=== PATIENT | female | born 1930 | race African-American/Black ===

== ENCOUNTER 2016-12-14 15:19 | Inpatient (IN) | payer MEDICARE, BC ==
[~2016-12-14] VITALS: Ht 165.1 cm; Wt 63.5 kg
[2016-12-14 17:30] LABS: BASOPHILS % 0.7 % (0.0-2.0); EOSINOPHILS % 4.2 % (0.0-5.0); HEMATOCRIT. 33.3 % (36.0-48.0); LYMPHOCYTES % 22.9 % (20.0-50.0); MEAN CORPUSCULAR HEMOGLOBIN 27.8 pg (28.0-32.0); MEAN CORPUSCULAR VOLUME 84.1 fL (81.0-99.0); MEAN PLATELET VOLUME 11.2 fl (7.4-10.4); MONOCYTES % 13.2 % (2.0-8.0); PLATELET 94 x1000/uL (130-400); RED BLOOD CELL COUNT 3.96 mill/uL (4.2-5.4); RED CELL DISTRIBUTION WIDTH 13.3 % (11.6-14.6)
[2016-12-14 17:33] LABS: CHLORIDE 105 mEq/L (98-107)
[2016-12-14 17:36] LABS: CARBON DIOXIDE 29 mEq/L (21-32)
[2016-12-14 17:40] LABS: D-DIMER 1.09 mg/L FEU (<0.50); INR 2.6; PARTIAL THROMBOPLASTIN TIME 29.9 sec (23.4-31.0); PROTHROMBIN TIME 26.8 sec (9.4-11.6)
[2016-12-14 17:43] LABS: TROPONIN I 0.17 ng/mL (0.00-0.04)
[2016-12-14] MEDS ORDERED: HYDRALAZINE 20MG/ML VIAL IV ONE (19:30)
[2016-12-14] MEDS ORDERED: MORPHINE SULFATE 4 MG/ML CPJ (NOT FOR IM USE) IV ONE (21:15)
[2016-12-14] MEDS ORDERED: ONDANSETRON HCL 4MG/2ML VIAL IV ONE (21:15)
[2016-12-15] VITALS: BP 166/62
[2016-12-15] MEDS ORDERED: ACETAMINOPHEN 325MG TABLET PO PRN (03:00)
[2016-12-15] MEDS ORDERED: ONDANSETRON HCL 4MG/2ML VIAL IV PRN (03:00)
[2016-12-15] MEDS ORDERED: MAGNESIUM HYDROXIDE 400MG/5ML 30ML UDC PO PRN (03:00)
[2016-12-15] MEDS ORDERED: LOSA25TA12 PO (03:35)
[2016-12-15] MEDS ORDERED: GABA-531 PO (03:35)
[2016-12-15] MEDS ORDERED: ATEN50TA PO (03:35)
[2016-12-15] MEDS ORDERED: WARF7.5T22 PO (03:35)
[2016-12-15] MEDS ORDERED: PRAV80TA21 PO (03:35)
[2016-12-15] MEDS ORDERED: KDUR20 PO (03:35)
[2016-12-15] MEDS ORDERED: FURO-152 PO (03:35)
[2016-12-15 04:00] VITALS: BP 175/65
[2016-12-15 08:00] VITALS: BP 138/51
[2016-12-15] MEDS: POTASSIUM CHLORIDE 20MEQ TABLET SR PO SCH (09:01)
[2016-12-15] MEDS: LOSARTAN POTASSIUM 25 MG TABLET PO SCH ×2 (09:01→21:26)
[2016-12-15] MEDS: FUROSEMIDE 20MG TABLET PO SCH (09:01)
[2016-12-15 09:22] LABS: BASOPHILS % 0.7 % (0.0-2.0); EOSINOPHILS % 4.6 % (0.0-5.0); HEMATOCRIT. 32.8 % (36.0-48.0); HEMOGLOBIN. 10.8 g/dL (12.0-16.0); LYMPHOCYTES % 23.5 % (20.0-50.0); MEAN CORPUSCULAR HEMOGLOBIN 27.7 pg (28.0-32.0); MEAN CORPUSCULAR VOLUME 83.8 fL (81.0-99.0); MEAN PLATELET VOLUME 10.8 fl (7.4-10.4); MONOCYTES % 10.5 % (2.0-8.0); NEUTROPHILS % 60.7 % (40.0-76.0); PLATELET 91 x1000/uL (130-400); RED BLOOD CELL COUNT 3.91 mill/uL (4.2-5.4); RED CELL DISTRIBUTION WIDTH 13.3 % (11.6-14.6)
[2016-12-15 09:49] LABS: CARBON DIOXIDE 30 mEq/L (21-32); CHLORIDE 107 mEq/L (98-107); CREATINE KINASE 214 IU/L (26-192); CREATINE KINASE MB FRACTION 3.5 ng/mL (0.5-3.6); HDL CHOLESTEROL 72 mg/dL (40-59); LDL CHOLESTEROL 78 mg/dL (5-100); PHOSPHORUS 3.7 mg/dL (2.5-4.9); T4 FREE 1.21 ng/dL (0.76-1.46); TOTAL IRON BINDING CAPACITY 209 ug/dL (250-450); TROPONIN I 0.19 ng/mL (0.00-0.04)
[2016-12-15 12:00] VITALS: BP 140/44
[2016-12-15 16:00] VITALS: BP 141/78
[2016-12-15 20:05] VITALS: BP 141/44
[2016-12-15] MEDS ORDERED: MEDICATION NOT ON FORMULARY EA (Pravastatin Sodium 80 MG) PO SCH (21:00)
[2016-12-15] MEDS: GABAPENTIN 300MG CAPSULE PO SCH (21:26)
[2016-12-15] MEDS: ATORVASTATIN CALCIUM 20MG TABLET PO SCH (21:26)
[2016-12-15 22:12] LABS: CREATINE KINASE MB FRACTION 2.2 ng/mL (0.5-3.6); TROPONIN I 0.17 ng/mL (0.00-0.04)
[2016-12-16 00:05] VITALS: BP 175/57
[2016-12-16 04:02] VITALS: BP 160/70
[2016-12-16 06:38] LABS: INR 1.7; PROTHROMBIN TIME 17.5 sec (9.4-11.6)
[2016-12-16 08:00] VITALS: BP 175/58
[2016-12-16] MEDS: POTASSIUM CHLORIDE 20MEQ TABLET SR PO SCH (09:11)
[2016-12-16] MEDS: FUROSEMIDE 20MG TABLET PO SCH (09:11)
[2016-12-16] MEDS: LOSARTAN POTASSIUM 25 MG TABLET PO SCH ×2 (09:11→21:41)
[2016-12-16] MEDS ORDERED: TRAMADOL 50MG TABLET PO PRN (11:15)
[2016-12-16] MEDS ORDERED: ACETAMINOPHEN 325MG TABLET PO PRN (11:15)
[2016-12-16] MEDS ORDERED: ZOLPIDEM TARTRATE 5MG TABLET PO PRN (11:15)
[2016-12-16] MEDS ORDERED: MAGNESIUM HYDROXIDE 400MG/5ML 30ML UDC PO PRN (11:15)
[2016-12-16] MEDS ORDERED: BISACODYL 10MG SUPP PR PRN (11:15)
[2016-12-16 12:00] VITALS: BP 165/50
[2016-12-16 16:00] VITALS: BP 170/75
[2016-12-16] MEDS: WARFARIN SODIUM 7.5MG TABLET PO SCH (18:15)
[2016-12-16 20:00] VITALS: BP_SYST 101; BP_SYST 179; BP_DIAS 62; BP_DIAS 66
[2016-12-16] MEDS: ATORVASTATIN CALCIUM 20MG TABLET PO SCH (21:41)
[2016-12-16] MEDS: GABAPENTIN 300MG CAPSULE PO SCH (21:41)
[2016-12-17] VITALS: BP 183/61
[2016-12-17 04:00] VITALS: BP 161/65
[2016-12-17 05:58] LABS: INR 1.2; PROTHROMBIN TIME 12.9 sec (9.4-11.6)
[2016-12-17] MEDS: FUROSEMIDE 20MG TABLET PO SCH ×2 (06:44→09:13)
[2016-12-17] MEDS: LOSARTAN POTASSIUM 25 MG TABLET PO SCH ×2 (06:44→21:26)
[2016-12-17 08:00] VITALS: BP 172/52
[2016-12-17] MEDS: POTASSIUM CHLORIDE 20MEQ TABLET SR PO SCH (09:13)
[2016-12-17] MEDS: AMLODIPINE 5MG TABLET PO SCH (09:55)
[2016-12-17 12:00] VITALS: BP 135/47
[2016-12-17 16:00] VITALS: BP 104/50
[2016-12-17] MEDS: WARFARIN SODIUM 7.5MG TABLET PO SCH (17:38)
[2016-12-17 20:00] VITALS: BP 132/60
[2016-12-17] MEDS: GABAPENTIN 300MG CAPSULE PO SCH (21:26)
[2016-12-17] MEDS: ATORVASTATIN CALCIUM 20MG TABLET PO SCH (21:26)
[2016-12-18] VITALS: BP 150/55
[2016-12-18 04:00] VITALS: BP 186/74
[2016-12-18 06:32] LABS: INR 1.3; PROTHROMBIN TIME 13.2 sec (9.4-11.6)
[2016-12-18] MEDS: LOSARTAN POTASSIUM 25 MG TABLET PO SCH (07:05)
[2016-12-18] MEDS: AMLODIPINE 5MG TABLET PO SCH (07:05)
[2016-12-18 08:00] VITALS: BP 162/73
[2016-12-18] MEDS: POTASSIUM CHLORIDE 20MEQ TABLET SR PO SCH (09:42)
[2016-12-18 10:18] VITALS: BP 162/73
== END 2016-12-18 12:10 | disposition home or self-care (01) | DRG 125 ==
LOC: ER 16:56 → 7WST 16:58 → EDBEDREQ 20:50 → ENRESERV 22:14
PROVIDERS: ADMIT Internal Medicine; ATTEND Internal Medicine
DX: S05.11XA Contusion of eyeball and orbital tissues, right eye, initial encounter (principal); I50.22 Chronic systolic (congestive) heart failure; D69.6 Thrombocytopenia, unspecified; R00.1 Bradycardia, unspecified; I48.0 Paroxysmal atrial fibrillation; W18.39XA Other fall on same level, initial encounter; D64.9 Anemia, unspecified; I48.2 Chronic atrial fibrillation; Z96.643 Presence of artificial hip joint, bilateral; I10 Essential (primary) hypertension; I25.10 Atherosclerotic heart disease of native coronary artery without angina pectoris; J32.9 Chronic sinusitis, unspecified; Z60.2 Problems related to living alone; M19.90 Unspecified osteoarthritis, unspecified site; I35.0 Nonrheumatic aortic (valve) stenosis; Z79.01 Long term (current) use of anticoagulants; Z90.710 Acquired absence of both cervix and uterus; Z95.3 Presence of xenogenic heart valve; Z95.1 Presence of aortocoronary bypass graft; Z98.41 Cataract extraction status, right eye; Z98.42 Cataract extraction status, left eye; Z88.0 Allergy status to penicillin; Y99.8 Other external cause status; Y93.89 Activity, other specified; Y92.89 Other specified places as the place of occurrence of the external cause; Z90.722 Acquired absence of ovaries, bilateral
CPT/HCPCS: 36415; 70450; 70551; 71010; 71020; 73562; 80053; 80061; 82550; 82553; 83036; 83540; 83550; 83690; 83735; 83880; 84100; 84439; 84443; 84481; 84484; 84550; 85025; 85379; 85610; 85730; 87077; 87086; 87186; 93005; 93306; 93970; 97116; 97162; 97530; 99285; A6261; C1893; J0360; J2270; J2405

== ENCOUNTER 2018-11-05 10:40 | Emergency (ER) | payer MEDICARE, BC ==
[~2018-11-05] VITALS: Ht 170.2 cm; Wt 62.0 kg
[~2018-11-05 10:40] MED LIST: ATEN50TA PO; FURO-152 PO; GABA-531 PO; KDUR20 PO; LOSA25TA26 PO; PRAV80TA21 PO; WARF7.5T22 PO
[2018-11-05 13:02] LABS: BASOPHILS % 0.9 % (0.0-2.0); EOSINOPHILS % 5.1 % (0.0-5.0); HEMATOCRIT. 27.2 % (36.0-48.0); HEMOGLOBIN. 9.2 g/dL (12.0-16.0); LYMPHOCYTES % 16.5 % (20.0-50.0); MEAN CORPUSCULAR HEMOGLOBIN 29.3 pg (28.0-32.0); MEAN CORPUSCULAR VOLUME 87.2 fL (81.0-99.0); MONOCYTES % 10.9 % (2.0-8.0); NEUTROPHILS % 66.6 % (40.0-76.0); PLATELET 174 x1000/uL (130-400); RED BLOOD CELL COUNT 3.12 mill/uL (4.2-5.4); RED CELL DISTRIBUTION WIDTH 15.1 % (11.6-14.6)
[2018-11-05 13:09] LABS: CHLORIDE 109 mEq/L (98-107)
[2018-11-05 13:13] LABS: INR 1.7; PARTIAL THROMBOPLASTIN TIME 38.7 sec (23.4-31.0); PROTHROMBIN TIME 17.4 sec (9.6-11.0)
[2018-11-05 17:40] VITALS: BP 128/55
== END 2018-11-05 17:52 | disposition home or self-care (01) ==
LOC: ER 10:50
DX: R60.0 Localized edema (principal); I11.0 Hypertensive heart disease with heart failure; I50.9 Heart failure, unspecified; Z96.641 Presence of right artificial hip joint; Z88.0 Allergy status to penicillin; Z79.899 Other long term (current) drug therapy; Z95.1 Presence of aortocoronary bypass graft
CPT/HCPCS: 36415; 71045; 83880; 84484; 93005; 93970; 99284

== ENCOUNTER 2019-03-19 13:36 | Inpatient (IN) | payer MEDICARE, BC ==
[~2019-03-19] VITALS: Ht 165.1 cm; Wt 56.7 kg
[2019-03-19] MEDS ORDERED: ONDANSETRON HCL 4MG/2ML INJ IV STA (15:12)
[2019-03-19] MEDS ORDERED: MORPHINE SULFATE 4 MG/ML CPJ (NOT FOR IM USE) IV STA (15:12)
[2019-03-19 15:39] LABS: BASOPHILS % 0.3 % (0.0-2.0); HEMATOCRIT. 34.9 % (36.0-48.0); HEMOGLOBIN. 11.6 g/dL (12.0-16.0); LYMPHOCYTES % 7.6 % (20.0-50.0); MEAN CORPUSCULAR HEMOGLOBIN 27.9 pg (28.0-32.0); MEAN CORPUSCULAR VOLUME 83.6 fL (81.0-99.0); MEAN PLATELET VOLUME 9.4 fl (7.4-10.4); MONOCYTES % 7.2 % (2.0-8.0); NEUTROPHILS % 82.9 % (40.0-76.0); PLATELET 175 x1000/uL (130-400); RED BLOOD CELL COUNT 4.17 mill/uL (4.2-5.4); RED CELL DISTRIBUTION WIDTH 15.1 % (11.6-14.6)
[2019-03-19 15:42] LABS: CHLORIDE 110 mEq/L (98-107)
[2019-03-19 15:51] LABS: INR 1.5; PROTHROMBIN TIME 14.9 sec (9.6-11.0)
[2019-03-19] MEDS ORDERED: FUROSEMIDE 40MG/4ML VIAL IVP NR (18:30)
[2019-03-19] MEDS ORDERED: CLONIDINE 0.1MG TABLET PO PRN (19:45)
[2019-03-19] MEDS ORDERED: MAGNESIUM/ALUMINUM HYDROXIDE/SIMETHICONE 30ML UDC PO PRN (19:45)
[2019-03-19] MEDS ORDERED: DIPHENHYDRAMINE 50MG/ML VIAL IV PRN (19:45)
[2019-03-19] MEDS ORDERED: ONDANSETRON HCL 4MG/2ML INJ IV PRN (19:45)
[2019-03-19 20:55] VITALS: BP 128/48
[2019-03-19] MEDS ORDERED: IOHEXOL-300 100 ML BOTTLE ONE (23:20)
[2019-03-19] MEDS ORDERED: HYDROMORPHONE HCL/PF 2MG/ML CPJ IV PRN (23:30)
[2019-03-19] MEDS ORDERED: WARFARIN SODIUM 10MG TABLET PO NR (23:45)
[2019-03-20] MEDS: ATORVASTATIN CALCIUM 40MG TABLET PO SCH ×2 (00:34→21:45)
[2019-03-20] MEDS: FAMOTIDINE 20MG TABLET PO SCH ×2 (00:34→21:45)
[2019-03-20] MEDS: GABAPENTIN 100MG CAPSULE PO SCH ×4 (00:34→21:45)
[2019-03-20] MEDS: SODIUM CHLORIDE 0.9% INJ 3ML FLUSH IVF SCH ×4 (00:35→21:46)
[2019-03-20] MEDS: ACETAMINOPHEN 325MG TABLET PO PRN ×2 (00:38→20:30)
[2019-03-20] MEDS: LACTULOSE 20G/30ML UDC PO SCH ×4 (00:38→21:51)
[2019-03-20 00:40] VITALS: BP 144/62
[2019-03-20 08:21] VITALS: BP 93/37
[2019-03-20] MEDS: LOSARTAN POTASSIUM 25 MG TABLET PO SCH (09:00)
[2019-03-20] MEDS: ATENOLOL 25MG TABLET PO SCH (09:00)
[2019-03-20] MEDS ORDERED: POTASSIUM CHLORIDE 8 MEQ TABLET.SA PO SCH (09:00)
[2019-03-20] MEDS ORDERED: FUROSEMIDE 20MG/2ML VIAL IVP SCH (09:00)
[2019-03-20 09:10] LABS: INR 1.4; PROTHROMBIN TIME 14.4 sec (9.6-11.0)
[2019-03-20 11:55] VITALS: BP 121/48
[2019-03-20] MEDS ORDERED: FURO-151 MT (14:53)
[2019-03-20] MEDS ORDERED: OLME40TA18 PO (14:53)
[2019-03-20 15:03] LABS: BASOPHILS % 0.7 % (0.0-2.0); EOSINOPHILS % 4.4 % (0.0-5.0); HEMATOCRIT. 29.1 % (36.0-48.0); HEMOGLOBIN. 9.4 g/dL (12.0-16.0); LYMPHOCYTES % 9.1 % (20.0-50.0); MEAN CORPUSCULAR HEMOGLOBIN 27.1 pg (28.0-32.0); MEAN CORPUSCULAR VOLUME 83.7 fL (81.0-99.0); MEAN PLATELET VOLUME 9.2 fl (7.4-10.4); MONOCYTES % 9.2 % (2.0-8.0); NEUTROPHILS % 76.6 % (40.0-76.0); PLATELET 147 x1000/uL (130-400); RED BLOOD CELL COUNT 3.47 mill/uL (4.2-5.4); RED CELL DISTRIBUTION WIDTH 15.2 % (11.6-14.6)
[2019-03-20 16:22] VITALS: BP 141/65
[2019-03-20] MEDS ORDERED: WARFARIN SODIUM 10MG TABLET PO NR (18:00)
[2019-03-20 20:34] VITALS: BP 134/59
[2019-03-21 00:01] VITALS: BP 113/47
[2019-03-21 04:00] VITALS: BP 126/56
[2019-03-21 06:30] LABS: HEMATOCRIT 27.5 % (36.0-48.0); HEMOGLOBIN 9.2 g/dL (12.0-16.0); MEAN CORPUSCULAR VOLUME 84.1 fL (81.0-99.0); PLATELET 153 x1000/uL (130-400); RED BLOOD CELL COUNT 3.27 mill/uL (4.2-5.4)
[2019-03-21 06:43] LABS: INR 1.6; PROTHROMBIN TIME 16.5 sec (9.6-11.0)
[2019-03-21 06:56] LABS: PHOSPHORUS 3.2 mg/dL (2.5-4.9)
[2019-03-21] MEDS: SODIUM CHLORIDE 0.9% INJ 3ML FLUSH IVF SCH ×3 (06:59→22:20)
[2019-03-21] MEDS: GABAPENTIN 100MG CAPSULE PO SCH ×3 (07:00→22:20)
[2019-03-21 07:01] LABS: FERRITIN 163 ng/mL (10-291)
[2019-03-21 07:02] LABS: FOLIC ACID (FOLATE) SERUM >20 ng/mL ng/mL (>5.38)
[2019-03-21] MEDS: LACTULOSE 20G/30ML UDC PO SCH ×3 (07:03→22:19)
[2019-03-21 07:14] LABS: VITAMIN B12 SERUM 664 pg/mL (211-911)
[2019-03-21 08:00] VITALS: BP 138/62
[2019-03-21] MEDS: HYDROCORTISONE ACETATE 25MG SUPP PR SCH ×2 (11:07→22:19)
[2019-03-21] MEDS: ATENOLOL 25MG TABLET PO SCH (11:08)
[2019-03-21] MEDS: ASCORBIC ACID 500 MG TABLET PO SCH (11:08)
[2019-03-21] MEDS: ZINC SULFATE 220 MG ( 50 ) CAPSULE PO SCH (11:09)
[2019-03-21] MEDS: LOSARTAN POTASSIUM 25 MG TABLET PO SCH (11:09)
[2019-03-21 12:00] VITALS: BP 136/65
[2019-03-21 16:00] VITALS: BP 121/46
[2019-03-21] MEDS: PANTOT AC/MIN OIL/PET HY-PHL OINT (AQUAPHOR) TOP SCH (17:26)
[2019-03-21] MEDS ORDERED: WARFARIN SODIUM 10MG TABLET PO NR (18:00)
[2019-03-21 20:59] VITALS: BP 145/82
[2019-03-21] MEDS: ATORVASTATIN CALCIUM 40MG TABLET PO SCH (22:20)
[2019-03-21] MEDS: FAMOTIDINE 20MG TABLET PO SCH (22:20)
[2019-03-22 00:40] VITALS: BP 120/56
[2019-03-22 04:00] VITALS: BP 130/56
[2019-03-22] MEDS: LACTULOSE 20G/30ML UDC PO SCH ×3 (06:06→14:00)
[2019-03-22] MEDS: SODIUM CHLORIDE 0.9% INJ 3ML FLUSH IVF SCH ×3 (06:06→22:33)
[2019-03-22] MEDS: GABAPENTIN 100MG CAPSULE PO SCH ×3 (06:06→22:31)
[2019-03-22 07:54] LABS: BASOPHILS % 0.6 % (0.0-2.0); EOSINOPHILS % 2.9 % (0.0-5.0); HEMATOCRIT. 33.2 % (36.0-48.0); HEMOGLOBIN. 10.8 g/dL (12.0-16.0); INR 1.4; LYMPHOCYTES % 14.2 % (20.0-50.0); MEAN CORPUSCULAR HEMOGLOBIN 27.4 pg (28.0-32.0); MEAN CORPUSCULAR VOLUME 84.2 fL (81.0-99.0); MEAN PLATELET VOLUME 9.4 fl (7.4-10.4); MONOCYTES % 8.4 % (2.0-8.0); NEUTROPHILS % 73.9 % (40.0-76.0); PLATELET 166 x1000/uL (130-400); PROTHROMBIN TIME 14.5 sec (9.6-11.0); RED BLOOD CELL COUNT 3.94 mill/uL (4.2-5.4); RED CELL DISTRIBUTION WIDTH 14.9 % (11.6-14.6)
[2019-03-22 08:00] VITALS: BP 161/53
[2019-03-22 08:00] LABS: CHLORIDE 110 mEq/L (98-107)
[2019-03-22] MEDS: LOSARTAN POTASSIUM 25 MG TABLET PO SCH (10:04)
[2019-03-22] MEDS: ATENOLOL 25MG TABLET PO SCH (10:04)
[2019-03-22] MEDS: ASCORBIC ACID 500 MG TABLET PO SCH (10:04)
[2019-03-22] MEDS: ZINC SULFATE 220 MG ( 50 ) CAPSULE PO SCH (10:05)
[2019-03-22 12:00] VITALS: BP_SYST 116; BP_DIAS 63; BP_DIAS 64
[2019-03-22] MEDS: PANTOT AC/MIN OIL/PET HY-PHL OINT (AQUAPHOR) TOP SCH (13:52)
[2019-03-22] MEDS: HYDROCORTISONE ACETATE 25MG SUPP PR SCH ×2 (13:55→22:31)
[2019-03-22 16:00] VITALS: BP 135/52
[2019-03-22] MEDS ORDERED: WARFARIN SODIUM 10MG TABLET PO SCH (18:00)
[2019-03-22 20:00] VITALS: BP 155/56
[2019-03-22] MEDS: FAMOTIDINE 40MG TABLET PO SCH (22:31)
[2019-03-22] MEDS: ATORVASTATIN CALCIUM 40MG TABLET PO SCH (22:31)
[2019-03-23] VITALS: BP 143/63
[2019-03-23 04:00] VITALS: BP 159/82
[2019-03-23] MEDS: SODIUM CHLORIDE 0.9% INJ 3ML FLUSH IVF SCH ×3 (06:00→21:00)
[2019-03-23] MEDS: GABAPENTIN 100MG CAPSULE PO SCH ×3 (06:00→21:00)
[2019-03-23 07:27] LABS: INR 1.7; PROTHROMBIN TIME 17.1 sec (9.6-11.0)
[2019-03-23 08:00] VITALS: BP 170/80
[2019-03-23] MEDS: PANTOT AC/MIN OIL/PET HY-PHL OINT (AQUAPHOR) TOP SCH (09:01)
[2019-03-23] MEDS: LOSARTAN POTASSIUM 25 MG TABLET PO SCH (09:02)
[2019-03-23] MEDS: ZINC SULFATE 220 MG ( 50 ) CAPSULE PO SCH (09:02)
[2019-03-23] MEDS: HYDROCORTISONE ACETATE 25MG SUPP PR SCH ×2 (09:02→20:58)
[2019-03-23] MEDS: ATENOLOL 25MG TABLET PO SCH (09:02)
[2019-03-23] MEDS: ASCORBIC ACID 500 MG TABLET PO SCH (09:02)
[2019-03-23] MEDS ORDERED: WARFARIN SODIUM 10MG TABLET PO SCH (18:00)
[2019-03-23 20:00] VITALS: BP 107/52
[2019-03-23] MEDS: ATORVASTATIN CALCIUM 40MG TABLET PO SCH (20:58)
[2019-03-23] MEDS: FAMOTIDINE 40MG TABLET PO SCH (20:58)
[2019-03-24] VITALS: BP 104/58
[2019-03-24 04:00] VITALS: BP 142/65
[2019-03-24] MEDS: SODIUM CHLORIDE 0.9% INJ 3ML FLUSH IVF SCH ×2 (05:12→14:44)
[2019-03-24] MEDS: ACETAMINOPHEN 325MG TABLET PO PRN (05:12)
[2019-03-24] MEDS: GABAPENTIN 100MG CAPSULE PO SCH ×2 (05:12→15:04)
[2019-03-24 07:23] LABS: INR 2.3; PROTHROMBIN TIME 23.4 sec (9.6-11.0)
[2019-03-24] MEDS: ATENOLOL 25MG TABLET PO SCH (08:33)
[2019-03-24] MEDS: ZINC SULFATE 220 MG ( 50 ) CAPSULE PO SCH (08:33)
[2019-03-24] MEDS: LOSARTAN POTASSIUM 25 MG TABLET PO SCH (08:33)
[2019-03-24] MEDS: ASCORBIC ACID 500 MG TABLET PO SCH (08:33)
[2019-03-24] MEDS: PANTOT AC/MIN OIL/PET HY-PHL OINT (AQUAPHOR) TOP SCH (08:34)
[2019-03-24] MEDS: HYDROCORTISONE ACETATE 25MG SUPP PR SCH (08:34)
[2019-03-24 12:00] VITALS: BP 126/57
[2019-03-24] MEDS ORDERED: CYANOCOBALAMIN 1000MCG/ML VIAL IM NR (13:00)
[2019-03-24 16:00] VITALS: BP 125/42
[2019-03-24 17:02] VITALS: BP 126/57
[2019-03-24] MEDS ORDERED: WARFARIN SODIUM 10MG TABLET PO NR (18:00)
[2019-03-25 04:07] LABS: 25-HYDROXY VITAMIN D3 28 ng/mL (.)
== END 2019-03-24 18:34 | DRG 378 ==
LOC: ER 13:36 → 6WST 18:22 → EDBEDREQ 18:25 → ENRESERV 20:43
PROVIDERS: ADMIT Internal Medicine; ATTEND Internal Medicine
DX: K62.5 Hemorrhage of anus and rectum (principal); I48.20 Chronic atrial fibrillation, unspecified; D68.9 Coagulation defect, unspecified; S70.01XA Contusion of right hip, initial encounter; D50.9 Iron deficiency anemia, unspecified; E78.00 Pure hypercholesterolemia, unspecified; I11.0 Hypertensive heart disease with heart failure; I48.0 Paroxysmal atrial fibrillation; I50.9 Heart failure, unspecified; K56.41 Fecal impaction; M19.90 Unspecified osteoarthritis, unspecified site; I35.0 Nonrheumatic aortic (valve) stenosis; G89.29 Other chronic pain; K80.20 Calculus of gallbladder without cholecystitis without obstruction; K64.8 Other hemorrhoids; M43.16 Spondylolisthesis, lumbar region; M47.816 Spondylosis without myelopathy or radiculopathy, lumbar region; M48.02 Spinal stenosis, cervical region; M48.061 Spinal stenosis, lumbar region without neurogenic claudication; M50.30 Other cervical disc degeneration, unspecified cervical region; W18.30XA Fall on same level, unspecified, initial encounter; Z96.643 Presence of artificial hip joint, bilateral; R29.6 Repeated falls; L89.319 Pressure ulcer of right buttock, unspecified stage; L89.899 Pressure ulcer of other site, unspecified stage; R26.9 Unspecified abnormalities of gait and mobility; Y93.89 Activity, other specified; Y99.8 Other external cause status; Y92.000 Kitchen of unspecified non-institutional (private) residence as the place of occurrence of the external cause; Z79.01 Long term (current) use of anticoagulants; Z83.3 Family history of diabetes mellitus; Z90.710 Acquired absence of both cervix and uterus; Z91.81 History of falling; Z95.3 Presence of xenogenic heart valve; Z95.828 Presence of other vascular implants and grafts; Z88.0 Allergy status to penicillin; Z79.899 Other long term (current) drug therapy
CPT/HCPCS: 36415; 71045; 72141; 72146; 72148; 72192; 73552; 73560; 73700; 74177; 82270; 82306; 82607; 82728; 82746; 83540; 83550; 83735; 83880; 84100; 84134; 84443; 84484; 85027; 92523; 92610; 93005; 96374; 97162; 97166; 97530; 99285; J1940; J2270; J2405; J3420; Q9967

== ENCOUNTER 2019-03-24 18:15 | Inpatient (IN) | payer MEDICARE, BC ==
[~2019-03-24] VITALS: Ht 165.1 cm; Wt 56.7 kg
[~2019-03-24 18:15] MED LIST changes: -ATEN50TA PO; +FURO-151 MT; -FURO-152 PO; -GABA-531 PO; -LOSA25TA26 PO; +OLME40TA18 PO; -PRAV80TA21 PO
[2019-03-24 20:00] VITALS: BP 142/61
[2019-03-24] MEDS ORDERED: DIPHENHYDRAMINE 25MG CAPSULE PO PRN (20:45)
[2019-03-24] MEDS ORDERED: CLONIDINE 0.1MG TABLET PO PRN (20:45)
[2019-03-24] MEDS ORDERED: MAGNESIUM/ALUMINUM HYDROXIDE/SIMETHICONE 30ML UDC PO PRN (20:45)
[2019-03-24] MEDS ORDERED: ACETAMINOPHEN 325MG TABLET PO PRN (20:45)
[2019-03-24] MEDS: GABAPENTIN 100MG CAPSULE PO SCH (21:51)
[2019-03-24] MEDS: HYDROCORTISONE ACETATE 25MG SUPP PR SCH (21:51)
[2019-03-24] MEDS: ATORVASTATIN CALCIUM 40MG TABLET PO SCH (21:52)
[2019-03-24] MEDS: FAMOTIDINE 20MG TABLET PO SCH (21:52)
[2019-03-25] MEDS: GABAPENTIN 100MG CAPSULE PO SCH ×3 (05:41→21:19)
[2019-03-25 07:19] LABS: EOSINOPHILS % 4.6 % (0.0-5.0); HEMOGLOBIN. 9.5 g/dL (12.0-16.0); INR 3.7; LYMPHOCYTES % 13.3 % (20.0-50.0); MEAN CORPUSCULAR HEMOGLOBIN 27.6 pg (28.0-32.0); MEAN CORPUSCULAR VOLUME 84.5 fL (81.0-99.0); MEAN PLATELET VOLUME 9.7 fl (7.4-10.4); MONOCYTES % 9.1 % (2.0-8.0); PLATELET 177 x1000/uL (130-400); PROTHROMBIN TIME 35.8 sec (9.6-11.0); RED BLOOD CELL COUNT 3.43 mill/uL (4.2-5.4)
[2019-03-25 07:32] LABS: CHLORIDE 109 mEq/L (98-107)
[2019-03-25 08:00] VITALS: BP 107/45
[2019-03-25] MEDS: ATENOLOL 25MG TABLET PO SCH (09:00)
[2019-03-25] MEDS: ZINC SULFATE 220 MG ( 50 ) CAPSULE PO SCH (10:05)
[2019-03-25] MEDS: ASCORBIC ACID 500 MG TABLET PO SCH (10:06)
[2019-03-25] MEDS: HYDROCORTISONE ACETATE 25MG SUPP PR SCH ×2 (10:06→20:44)
[2019-03-25] MEDS: LOSARTAN POTASSIUM 25 MG TABLET PO SCH (10:06)
[2019-03-25] MEDS: PANTOT AC/MIN OIL/PET HY-PHL OINT (AQUAPHOR) TOP SCH (10:10)
[2019-03-25] MEDS: LIDOCAINE 5% PATCH TOP SCH (13:48)
[2019-03-25] MEDS: FERROUS SULFATE 325MG TABLET PO SCH ×2 (13:48→18:02)
[2019-03-25] MEDS: ERGOCALCIFEROL 50000UNITS CAPSULE PO SCH (13:48)
[2019-03-25] MEDS: DOCUSATE SODIUM 100MG CAPSULE PO SCH (18:02)
[2019-03-25 20:00] VITALS: BP 132/55
[2019-03-25] MEDS: FAMOTIDINE 20MG TABLET PO SCH (20:44)
[2019-03-25] MEDS: ATORVASTATIN CALCIUM 40MG TABLET PO SCH (20:44)
[2019-03-26] MEDS: GABAPENTIN 100MG CAPSULE PO SCH ×3 (05:06→22:01)
[2019-03-26 07:09] LABS: INR 2.8; PROTHROMBIN TIME 27.4 sec (9.6-11.0)
[2019-03-26 08:00] VITALS: BP 137/80
[2019-03-26] MEDS: POLYETHYLENE GLYCOL 3350 (17GM) 1 DOSE PACK PO SCH (09:00)
[2019-03-26] MEDS: ZINC SULFATE 220 MG ( 50 ) CAPSULE PO SCH (09:05)
[2019-03-26] MEDS: DOCUSATE SODIUM 100MG CAPSULE PO SCH ×2 (09:05→17:24)
[2019-03-26] MEDS: ASCORBIC ACID 500 MG TABLET PO SCH (09:05)
[2019-03-26] MEDS: FERROUS SULFATE 325MG TABLET PO SCH ×3 (09:05→17:24)
[2019-03-26] MEDS: LOSARTAN POTASSIUM 25 MG TABLET PO SCH (09:05)
[2019-03-26] MEDS: HYDROCORTISONE ACETATE 25MG SUPP PR SCH ×2 (09:06→21:45)
[2019-03-26] MEDS: ATENOLOL 25MG TABLET PO SCH (09:06)
[2019-03-26] MEDS: PANTOT AC/MIN OIL/PET HY-PHL OINT (AQUAPHOR) TOP SCH (09:06)
[2019-03-26] MEDS: LIDOCAINE 5% PATCH TOP SCH (09:10)
[2019-03-26] MEDS ORDERED: LACTULOSE 20G/30ML UDC PO SCH (13:10)
[2019-03-26] MEDS ORDERED: WARFARIN SODIUM 3MG TABLET PO NR (18:00)
[2019-03-26 20:00] VITALS: BP 133/53
[2019-03-26] MEDS: ATORVASTATIN CALCIUM 40MG TABLET PO SCH (21:45)
[2019-03-26] MEDS: FAMOTIDINE 20MG TABLET PO SCH (21:46)
[2019-03-27 00:07] LABS: CLARITY URINE CLEAR (CLEAR); COLOR URINE YELLOW (YELLOW); KETONES URINE NEGATIVE (NEGATIVE); LEUKOCYTE ESTERASE URINE 1+ (NEGATIVE); NITRITE URINE NEGATIVE (NEGATIVE); OCCULT BLOOD URINE NEGATIVE (NEGATIVE); PH URINE 6.5 (4.5-8.0); PROTEIN URINE NEGATIVE (NEGATIVE); SPECIFIC GRAVITY URINE 1.015 (1.005-1.030)
[2019-03-27] MEDS: GABAPENTIN 100MG CAPSULE PO SCH ×3 (05:42→21:53)
[2019-03-27 07:50] LABS: INR 2.2
[2019-03-27 08:02] LABS: BASOPHILS % 0.8 % (0.0-2.0); EOSINOPHILS % 3.5 % (0.0-5.0); HEMATOCRIT. 28.4 % (36.0-48.0); HEMOGLOBIN. 9.3 g/dL (12.0-16.0); LYMPHOCYTES % 17.1 % (20.0-50.0); MEAN CORPUSCULAR HEMOGLOBIN 27.4 pg (28.0-32.0); MEAN CORPUSCULAR VOLUME 83.9 fL (81.0-99.0); MEAN PLATELET VOLUME 9.3 fl (7.4-10.4); MONOCYTES % 10.3 % (2.0-8.0); NEUTROPHILS % 68.3 % (40.0-76.0); PLATELET 203 x1000/uL (130-400); RED BLOOD CELL COUNT 3.38 mill/uL (4.2-5.4); RED CELL DISTRIBUTION WIDTH 14.9 % (11.6-14.6)
[2019-03-27 08:14] VITALS: BP 150/58
[2019-03-27 08:15] LABS: CHLORIDE 111 mEq/L (98-107)
[2019-03-27 08:24] LABS: PHOSPHORUS 2.9 mg/dL (2.5-4.9)
[2019-03-27 08:27] LABS: TOTAL IRON BINDING CAPACITY 233 ug/dL (250-450)
[2019-03-27 08:32] LABS: FERRITIN 172 ng/mL (10-291)
[2019-03-27] MEDS: POLYETHYLENE GLYCOL 3350 (17GM) 1 DOSE PACK PO SCH (08:59)
[2019-03-27] MEDS: LOSARTAN POTASSIUM 25 MG TABLET PO SCH (09:00)
[2019-03-27] MEDS: FERROUS SULFATE 325MG TABLET PO SCH ×2 (09:00→13:13)
[2019-03-27] MEDS: HYDROCODONE/ACETAMINOPHEN 5/325MG TABLET PO PRN ×2 (09:00→15:44)
[2019-03-27] MEDS: LIDOCAINE 5% PATCH TOP SCH (09:00)
[2019-03-27] MEDS: DOCUSATE SODIUM 100MG CAPSULE PO SCH ×2 (09:00→18:10)
[2019-03-27] MEDS: ZINC SULFATE 220 MG ( 50 ) CAPSULE PO SCH (09:00)
[2019-03-27] MEDS: ASCORBIC ACID 500 MG TABLET PO SCH (09:00)
[2019-03-27] MEDS: ATENOLOL 25MG TABLET PO SCH (09:01)
[2019-03-27] MEDS: PANTOT AC/MIN OIL/PET HY-PHL OINT (AQUAPHOR) TOP SCH (09:01)
[2019-03-27] MEDS: HYDROCORTISONE ACETATE 25MG SUPP PR SCH ×2 (09:01→21:00)
[2019-03-27] MEDS: LACTULOSE 20G/30ML UDC PO SCH ×2 (13:13→21:53)
[2019-03-27 14:08] LABS: FOLIC ACID (FOLATE) SERUM >20 ng/mL ng/mL (>5.38)
[2019-03-27 14:21] LABS: VITAMIN B12 SERUM 1879 pg/mL (211-911)
[2019-03-27 15:43] VITALS: BP 144/58
[2019-03-27] MEDS ORDERED: WARFARIN SODIUM 7.5MG TABLET PO NR (18:00)
[2019-03-27 20:00] VITALS: BP 110/39
[2019-03-27] MEDS: ATORVASTATIN CALCIUM 40MG TABLET PO SCH (21:53)
[2019-03-27] MEDS: FAMOTIDINE 20MG TABLET PO SCH (21:53)
[2019-03-27] MEDS: IRON SUCROSE COMPLEX 100 MG in SODIUM CHLORIDE 0.9% 100 ML IV SCH (21:54)
[2019-03-28] MEDS: LACTULOSE 20G/30ML UDC PO SCH ×3 (05:40→21:18)
[2019-03-28] MEDS: GABAPENTIN 100MG CAPSULE PO SCH ×3 (05:40→21:18)
[2019-03-28 06:38] LABS: INR 2.4; PROTHROMBIN TIME 23.5 sec (9.6-11.0)
[2019-03-28 08:09] VITALS: BP 119/43
[2019-03-28] MEDS: POLYETHYLENE GLYCOL 3350 (17GM) 1 DOSE PACK PO SCH (08:55)
[2019-03-28] MEDS: LOSARTAN POTASSIUM 25 MG TABLET PO SCH (08:55)
[2019-03-28] MEDS: LIDOCAINE 5% PATCH TOP SCH (08:55)
[2019-03-28] MEDS: DOCUSATE SODIUM 100MG CAPSULE PO SCH ×2 (08:56→16:33)
[2019-03-28] MEDS: ZINC SULFATE 220 MG ( 50 ) CAPSULE PO SCH (08:56)
[2019-03-28] MEDS: ASCORBIC ACID 500 MG TABLET PO SCH (08:56)
[2019-03-28] MEDS: ATENOLOL 25MG TABLET PO SCH ×2 (08:56→09:00)
[2019-03-28] MEDS: HYDROCORTISONE ACETATE 25MG SUPP PR SCH ×2 (08:56→21:18)
[2019-03-28] MEDS: HYDROCODONE/ACETAMINOPHEN 5/325MG TABLET PO PRN (08:57)
[2019-03-28] MEDS: PANTOT AC/MIN OIL/PET HY-PHL OINT (AQUAPHOR) TOP SCH (09:00)
[2019-03-28] MEDS ORDERED: BISACODYL 10MG SUPP PR NR (11:45)
[2019-03-28] MEDS ORDERED: WARFARIN SODIUM 7.5MG TABLET PO NR (18:00)
[2019-03-28 20:00] VITALS: BP_SYST 140; BP_SYST 97; BP_DIAS 49; BP_DIAS 65
[2019-03-28] MEDS: IRON SUCROSE COMPLEX 100 MG in SODIUM CHLORIDE 0.9% 100 ML IV SCH (21:16)
[2019-03-28] MEDS: FAMOTIDINE 20MG TABLET PO SCH (21:18)
[2019-03-28] MEDS: ATORVASTATIN CALCIUM 40MG TABLET PO SCH (21:18)
[2019-03-29 05:52] LABS: INR 2.3
[2019-03-29 05:54] LABS: CHLORIDE 110 mEq/L (98-107)
[2019-03-29 05:57] LABS: BASOPHILS % 0.8 % (0.0-2.0); EOSINOPHILS % 3.4 % (0.0-5.0); HEMATOCRIT. 27.2 % (36.0-48.0); HEMOGLOBIN. 8.9 g/dL (12.0-16.0); LYMPHOCYTES % 13.5 % (20.0-50.0); MEAN CORPUSCULAR HEMOGLOBIN 27.5 pg (28.0-32.0); MEAN CORPUSCULAR VOLUME 83.8 fL (81.0-99.0); MEAN PLATELET VOLUME 8.9 fl (7.4-10.4); MONOCYTES % 8.8 % (2.0-8.0); NEUTROPHILS % 73.5 % (40.0-76.0); PLATELET 227 x1000/uL (130-400); RED BLOOD CELL COUNT 3.24 mill/uL (4.2-5.4); RED CELL DISTRIBUTION WIDTH 14.6 % (11.6-14.6)
[2019-03-29] MEDS: LACTULOSE 20G/30ML UDC PO SCH ×3 (06:15→21:38)
[2019-03-29] MEDS: GABAPENTIN 100MG CAPSULE PO SCH ×3 (06:15→21:38)
[2019-03-29] MEDS: HYDROCODONE/ACETAMINOPHEN 5/325MG TABLET PO PRN (06:16)
[2019-03-29 08:00] VITALS: BP 119/45
[2019-03-29 08:14] VITALS: BP 119/39
[2019-03-29] MEDS: ZINC SULFATE 220 MG ( 50 ) CAPSULE PO SCH (08:46)
[2019-03-29] MEDS: DOCUSATE SODIUM 100MG CAPSULE PO SCH ×2 (08:46→16:18)
[2019-03-29] MEDS: HYDROCORTISONE ACETATE 25MG SUPP PR SCH ×2 (08:46→21:38)
[2019-03-29] MEDS: LOSARTAN POTASSIUM 25 MG TABLET PO SCH (08:46)
[2019-03-29] MEDS: ASCORBIC ACID 500 MG TABLET PO SCH (08:46)
[2019-03-29] MEDS: PANTOT AC/MIN OIL/PET HY-PHL OINT (AQUAPHOR) TOP SCH (08:47)
[2019-03-29] MEDS: ATENOLOL 25MG TABLET PO SCH (08:48)
[2019-03-29] MEDS: POLYETHYLENE GLYCOL 3350 (17GM) 1 DOSE PACK PO SCH (08:48)
[2019-03-29] MEDS: LIDOCAINE 5% PATCH TOP SCH (08:48)
[2019-03-29] MEDS: SULFAMETHOXAZOLE/TRIMETHOPRIM 400/80MG TAB PO SCH (16:18)
[2019-03-29] MEDS ORDERED: WARFARIN SODIUM 7.5MG TABLET PO NR (18:00)
[2019-03-29 20:00] VITALS: BP 138/64
[2019-03-29] MEDS: IRON SUCROSE COMPLEX 100 MG in SODIUM CHLORIDE 0.9% 100 ML IV SCH (21:36)
[2019-03-29] MEDS: ATORVASTATIN CALCIUM 40MG TABLET PO SCH (21:38)
[2019-03-29] MEDS: FAMOTIDINE 20MG TABLET PO SCH (21:38)
[2019-03-30] MEDS: GABAPENTIN 100MG CAPSULE PO SCH ×3 (06:07→21:14)
[2019-03-30] MEDS: LACTULOSE 20G/30ML UDC PO SCH ×3 (06:07→21:14)
[2019-03-30] MEDS: SULFAMETHOXAZOLE/TRIMETHOPRIM 400/80MG TAB PO SCH ×2 (06:08→17:03)
[2019-03-30 07:14] LABS: INR 2.6; PROTHROMBIN TIME 25.8 sec (9.6-11.0)
[2019-03-30 08:00] VITALS: BP 168/82
[2019-03-30 08:04] VITALS: BP 168/82
[2019-03-30] MEDS: ATENOLOL 25MG TABLET PO SCH (08:50)
[2019-03-30] MEDS: DOCUSATE SODIUM 100MG CAPSULE PO SCH ×2 (08:50→17:03)
[2019-03-30] MEDS: LIDOCAINE 5% PATCH TOP SCH (08:50)
[2019-03-30] MEDS: HYDROCORTISONE ACETATE 25MG SUPP PR SCH ×2 (08:50→20:44)
[2019-03-30] MEDS: ZINC SULFATE 220 MG ( 50 ) CAPSULE PO SCH (08:50)
[2019-03-30] MEDS: ASCORBIC ACID 500 MG TABLET PO SCH (08:50)
[2019-03-30] MEDS: LOSARTAN POTASSIUM 25 MG TABLET PO SCH (08:50)
[2019-03-30] MEDS: PANTOT AC/MIN OIL/PET HY-PHL OINT (AQUAPHOR) TOP SCH (08:51)
[2019-03-30] MEDS ORDERED: WARFARIN SODIUM 5MG TABLET PO NR (18:00)
[2019-03-30] MEDS ORDERED: WARFARIN SODIUM 2MG TABLET PO NR (18:00)
[2019-03-30 20:00] VITALS: BP 121/47
[2019-03-30] MEDS: ATORVASTATIN CALCIUM 40MG TABLET PO SCH (20:43)
[2019-03-30] MEDS: IRON SUCROSE COMPLEX 100 MG in SODIUM CHLORIDE 0.9% 100 ML IV SCH (20:44)
[2019-03-30] MEDS: FAMOTIDINE 20MG TABLET PO SCH (20:44)
[2019-03-31] MEDS: LACTULOSE 20G/30ML UDC PO SCH ×3 (05:03→21:02)
[2019-03-31] MEDS: GABAPENTIN 100MG CAPSULE PO SCH ×3 (05:03→21:03)
[2019-03-31] MEDS: SULFAMETHOXAZOLE/TRIMETHOPRIM 400/80MG TAB PO SCH ×2 (05:03→17:14)
[2019-03-31] MEDS: HYDROCODONE/ACETAMINOPHEN 5/325MG TABLET PO PRN (07:00)
[2019-03-31 07:01] LABS: INR 3.1; PROTHROMBIN TIME 30.2 sec (9.6-11.0)
[2019-03-31 07:44] VITALS: BP 101/59
[2019-03-31] MEDS: LIDOCAINE 5% PATCH TOP SCH (08:38)
[2019-03-31] MEDS: ASCORBIC ACID 500 MG TABLET PO SCH (08:39)
[2019-03-31] MEDS: DOCUSATE SODIUM 100MG CAPSULE PO SCH ×2 (08:39→17:14)
[2019-03-31] MEDS: HYDROCORTISONE ACETATE 25MG SUPP PR SCH ×2 (08:39→21:02)
[2019-03-31] MEDS: ATENOLOL 25MG TABLET PO SCH (08:39)
[2019-03-31] MEDS: ZINC SULFATE 220 MG ( 50 ) CAPSULE PO SCH (08:39)
[2019-03-31] MEDS: LOSARTAN POTASSIUM 25 MG TABLET PO SCH (08:39)
[2019-03-31] MEDS: PANTOT AC/MIN OIL/PET HY-PHL OINT (AQUAPHOR) TOP SCH (08:46)
[2019-03-31 20:00] VITALS: BP 115/46
[2019-03-31] MEDS: FAMOTIDINE 20MG TABLET PO SCH (21:00)
[2019-03-31] MEDS: IRON SUCROSE COMPLEX 100 MG in SODIUM CHLORIDE 0.9% 100 ML IV SCH (21:02)
[2019-03-31] MEDS: ATORVASTATIN CALCIUM 40MG TABLET PO SCH (21:02)
[2019-04-01] MEDS: ONDANSETRON HCL 4MG/2ML INJ IV PRN (00:55)
[2019-04-01 04:06] LABS: 25-HYDROXY VITAMIN D3 27 ng/mL (.)
[2019-04-01] MEDS: LACTULOSE 20G/30ML UDC PO SCH ×3 (05:41→21:53)
[2019-04-01] MEDS: SULFAMETHOXAZOLE/TRIMETHOPRIM 400/80MG TAB PO SCH ×2 (05:41→17:10)
[2019-04-01] MEDS: GABAPENTIN 100MG CAPSULE PO SCH ×3 (05:41→21:53)
[2019-04-01 07:47] LABS: INR 2.8; PROTHROMBIN TIME 28.1 sec (9.6-11.0)
[2019-04-01 07:53] VITALS: BP 129/54
[2019-04-01] MEDS: ATENOLOL 25MG TABLET PO SCH (08:13)
[2019-04-01] MEDS: LOSARTAN POTASSIUM 25 MG TABLET PO SCH (08:13)
[2019-04-01] MEDS: DOCUSATE SODIUM 100MG CAPSULE PO SCH ×2 (08:14→16:07)
[2019-04-01] MEDS: ASCORBIC ACID 500 MG TABLET PO SCH (08:14)
[2019-04-01] MEDS: HYDROCORTISONE ACETATE 25MG SUPP PR SCH ×2 (08:14→21:53)
[2019-04-01] MEDS: LIDOCAINE 5% PATCH TOP SCH (08:14)
[2019-04-01] MEDS: ERGOCALCIFEROL 50000UNITS CAPSULE PO SCH (08:14)
[2019-04-01] MEDS: ZINC SULFATE 220 MG ( 50 ) CAPSULE PO SCH (08:14)
[2019-04-01] MEDS: PANTOT AC/MIN OIL/PET HY-PHL OINT (AQUAPHOR) TOP SCH (09:16)
[2019-04-01] MEDS ORDERED: WARFARIN SODIUM 3MG TABLET PO NR (13:30)
[2019-04-01 20:00] VITALS: BP 122/51
[2019-04-01] MEDS: ATORVASTATIN CALCIUM 40MG TABLET PO SCH (21:53)
[2019-04-01] MEDS: FAMOTIDINE 20MG TABLET PO SCH (21:56)
[2019-04-01 22:00] VITALS: BP 120/60
[2019-04-02] MEDS: LACTULOSE 20G/30ML UDC PO SCH ×3 (05:28→22:05)
[2019-04-02] MEDS: SULFAMETHOXAZOLE/TRIMETHOPRIM 400/80MG TAB PO SCH ×2 (05:33→17:01)
[2019-04-02] MEDS: GABAPENTIN 100MG CAPSULE PO SCH ×3 (05:33→22:05)
[2019-04-02 07:14] LABS: INR 1.8; PROTHROMBIN TIME 18.1 sec (9.6-11.0)
[2019-04-02 08:07] VITALS: BP 120/61
[2019-04-02] MEDS: LOSARTAN POTASSIUM 25 MG TABLET PO SCH (09:00)
[2019-04-02] MEDS: ATENOLOL 25MG TABLET PO SCH (09:00)
[2019-04-02] MEDS: ZINC SULFATE 220 MG ( 50 ) CAPSULE PO SCH (09:02)
[2019-04-02] MEDS: PANTOT AC/MIN OIL/PET HY-PHL OINT (AQUAPHOR) TOP SCH (09:02)
[2019-04-02] MEDS: DOCUSATE SODIUM 100MG CAPSULE PO SCH ×2 (09:02→17:01)
[2019-04-02] MEDS: HYDROCORTISONE ACETATE 25MG SUPP PR SCH ×2 (09:02→22:05)
[2019-04-02] MEDS: ASCORBIC ACID 500 MG TABLET PO SCH (09:02)
[2019-04-02] MEDS: LIDOCAINE 5% PATCH TOP SCH (09:03)
[2019-04-02] MEDS ORDERED: WARFARIN SODIUM 2MG TABLET PO NR (18:00)
[2019-04-02] MEDS ORDERED: WARFARIN SODIUM 5MG TABLET PO NR (18:00)
[2019-04-02] MEDS: ONDANSETRON HCL 4MG/2ML INJ IV PRN (19:16)
[2019-04-02 20:00] VITALS: BP 118/62
[2019-04-02] MEDS: ATORVASTATIN CALCIUM 40MG TABLET PO SCH (22:05)
[2019-04-02] MEDS: FAMOTIDINE 40MG TABLET PO SCH (22:45)
[2019-04-03] MEDS: LACTULOSE 20G/30ML UDC PO SCH ×3 (06:00→21:38)
[2019-04-03] MEDS: GABAPENTIN 100MG CAPSULE PO SCH ×3 (06:14→21:38)
[2019-04-03] MEDS: SULFAMETHOXAZOLE/TRIMETHOPRIM 400/80MG TAB PO SCH ×2 (06:14→17:15)
[2019-04-03 06:22] LABS: CHLORIDE 111 mEq/L (98-107)
[2019-04-03 06:24] LABS: INR 1.8; PROTHROMBIN TIME 18.3 sec (9.6-11.0)
[2019-04-03 06:29] LABS: BASOPHILS % 1.1 % (0.0-2.0); EOSINOPHILS % 4.5 % (0.0-5.0); HEMATOCRIT. 27.5 % (36.0-48.0); LYMPHOCYTES % 18.1 % (20.0-50.0); MEAN CORPUSCULAR VOLUME 85.7 fL (81.0-99.0); MEAN PLATELET VOLUME 9.5 fl (7.4-10.4); NEUTROPHILS % 66.3 % (40.0-76.0); PLATELET 187 x1000/uL (130-400); RED CELL DISTRIBUTION WIDTH 17.2 % (11.6-14.6)
[2019-04-03 07:47] VITALS: BP 115/52
[2019-04-03 08:09] VITALS: BP 115/52
[2019-04-03] MEDS: LIDOCAINE 5% PATCH TOP SCH (08:34)
[2019-04-03] MEDS: ZINC SULFATE 220 MG ( 50 ) CAPSULE PO SCH (08:35)
[2019-04-03] MEDS: HYDROCORTISONE ACETATE 25MG SUPP PR SCH ×2 (08:35→21:38)
[2019-04-03] MEDS: ASCORBIC ACID 500 MG TABLET PO SCH (08:35)
[2019-04-03] MEDS: ATENOLOL 25MG TABLET PO SCH (08:35)
[2019-04-03] MEDS: LOSARTAN POTASSIUM 25 MG TABLET PO SCH (08:35)
[2019-04-03] MEDS: DOCUSATE SODIUM 100MG CAPSULE PO SCH ×2 (08:35→17:15)
[2019-04-03] MEDS: PANTOT AC/MIN OIL/PET HY-PHL OINT (AQUAPHOR) TOP SCH (08:36)
[2019-04-03] MEDS: HYDROCODONE/ACETAMINOPHEN 5/325MG TABLET PO PRN (09:15)
[2019-04-03] MEDS ORDERED: WARFARIN SODIUM 7.5MG TABLET PO NR (18:00)
[2019-04-03 20:00] VITALS: BP 114/50
[2019-04-03] MEDS: ATORVASTATIN CALCIUM 40MG TABLET PO SCH (21:38)
[2019-04-04 00:34] VITALS: BP 114/50
[2019-04-04] MEDS: SULFAMETHOXAZOLE/TRIMETHOPRIM 400/80MG TAB PO SCH ×2 (06:28→17:08)
[2019-04-04] MEDS: LACTULOSE 20G/30ML UDC PO SCH ×3 (06:28→21:27)
[2019-04-04] MEDS: GABAPENTIN 100MG CAPSULE PO SCH ×3 (06:28→21:26)
[2019-04-04 06:55] LABS: INR 2.2; PROTHROMBIN TIME 21.7 sec (9.6-11.0)
[2019-04-04 08:03] VITALS: BP 136/58
[2019-04-04] MEDS: PANTOT AC/MIN OIL/PET HY-PHL OINT (AQUAPHOR) TOP SCH (08:04)
[2019-04-04] MEDS: ZINC SULFATE 220 MG ( 50 ) CAPSULE PO SCH (08:05)
[2019-04-04] MEDS: ASCORBIC ACID 500 MG TABLET PO SCH (08:05)
[2019-04-04] MEDS: ATENOLOL 25MG TABLET PO SCH (08:05)
[2019-04-04] MEDS: LOSARTAN POTASSIUM 25 MG TABLET PO SCH (08:05)
[2019-04-04] MEDS: LIDOCAINE 5% PATCH TOP SCH (08:06)
[2019-04-04] MEDS: DOCUSATE SODIUM 100MG CAPSULE PO SCH ×2 (08:06→17:08)
[2019-04-04] MEDS: HYDROCORTISONE ACETATE 25MG SUPP PR SCH ×2 (08:07→21:27)
[2019-04-04] MEDS ORDERED: WARFARIN SODIUM 2.5MG TABLET PO NR (18:00)
[2019-04-04] MEDS ORDERED: WARFARIN SODIUM 4MG TABLET PO NR (18:00)
[2019-04-04 20:00] VITALS: BP 126/42
[2019-04-04] MEDS: ATORVASTATIN CALCIUM 40MG TABLET PO SCH (21:26)
[2019-04-04] MEDS: FAMOTIDINE 40MG TABLET PO SCH (21:26)
[2019-04-05] MEDS: LACTULOSE 20G/30ML UDC PO SCH ×3 (06:18→21:04)
[2019-04-05] MEDS: SULFAMETHOXAZOLE/TRIMETHOPRIM 400/80MG TAB PO SCH (06:18)
[2019-04-05] MEDS: GABAPENTIN 100MG CAPSULE PO SCH ×3 (06:18→21:03)
[2019-04-05 07:14] LABS: INR 2.6; PROTHROMBIN TIME 25.5 sec (9.6-11.0)
[2019-04-05 07:18] LABS: CHLORIDE 110 mEq/L (98-107)
[2019-04-05 07:30] LABS: BASOPHILS % 1.3 % (0.0-2.0); EOSINOPHILS % 5.5 % (0.0-5.0); HEMOGLOBIN. 9.3 g/dL (12.0-16.0); LYMPHOCYTES % 18.7 % (20.0-50.0); MEAN CORPUSCULAR HEMOGLOBIN 28.2 pg (28.0-32.0); MEAN CORPUSCULAR VOLUME 85.5 fL (81.0-99.0); MEAN PLATELET VOLUME 9.1 fl (7.4-10.4); MONOCYTES % 12.1 % (2.0-8.0); NEUTROPHILS % 62.4 % (40.0-76.0); PLATELET 183 x1000/uL (130-400); RED BLOOD CELL COUNT 3.28 mill/uL (4.2-5.4); RED CELL DISTRIBUTION WIDTH 16.9 % (11.6-14.6)
[2019-04-05 07:48] VITALS: BP 110/42
[2019-04-05] MEDS: ASCORBIC ACID 500 MG TABLET PO SCH (08:28)
[2019-04-05] MEDS: LOSARTAN POTASSIUM 25 MG TABLET PO SCH (08:28)
[2019-04-05] MEDS: ZINC SULFATE 220 MG ( 50 ) CAPSULE PO SCH (08:28)
[2019-04-05] MEDS: DOCUSATE SODIUM 100MG CAPSULE PO SCH ×2 (08:28→17:11)
[2019-04-05] MEDS: LIDOCAINE 5% PATCH TOP SCH (08:28)
[2019-04-05] MEDS: PANTOT AC/MIN OIL/PET HY-PHL OINT (AQUAPHOR) TOP SCH (08:30)
[2019-04-05] MEDS: ATENOLOL 25MG TABLET PO SCH (08:31)
[2019-04-05] MEDS: HYDROCORTISONE ACETATE 25MG SUPP PR SCH ×2 (08:31→21:03)
[2019-04-05] MEDS: FERROUS SULFATE 325MG TABLET PO SCH (17:11)
[2019-04-05] MEDS: OMEPRAZOLE 20MG CAPSULE EXTENDED RELEASE PO SCH (17:12)
[2019-04-05] MEDS ORDERED: WARFARIN SODIUM 2.5MG TABLET PO SCH (18:00)
[2019-04-05] MEDS ORDERED: WARFARIN SODIUM 4MG TABLET PO SCH (18:00)
[2019-04-05 20:00] VITALS: BP 114/42
[2019-04-05] MEDS: ATORVASTATIN CALCIUM 40MG TABLET PO SCH (21:03)
[2019-04-05] MEDS: FAMOTIDINE 40MG TABLET PO SCH (21:03)
[2019-04-06] MEDS: GABAPENTIN 100MG CAPSULE PO SCH ×3 (05:36→21:59)
[2019-04-06] MEDS: OMEPRAZOLE 20MG CAPSULE EXTENDED RELEASE PO SCH ×2 (05:36→16:30)
[2019-04-06] MEDS: LACTULOSE 20G/30ML UDC PO SCH ×2 (05:48→13:17)
[2019-04-06 08:01] VITALS: BP 132/60
[2019-04-06 08:13] VITALS: BP 132/60
[2019-04-06] MEDS: ATENOLOL 25MG TABLET PO SCH (08:45)
[2019-04-06] MEDS: PANTOT AC/MIN OIL/PET HY-PHL OINT (AQUAPHOR) TOP SCH (08:45)
[2019-04-06] MEDS: DOCUSATE SODIUM 100MG CAPSULE PO SCH ×2 (08:45→16:30)
[2019-04-06] MEDS: ZINC SULFATE 220 MG ( 50 ) CAPSULE PO SCH (08:45)
[2019-04-06] MEDS: ASCORBIC ACID 500 MG TABLET PO SCH (08:45)
[2019-04-06] MEDS: LIDOCAINE 5% PATCH TOP SCH (08:45)
[2019-04-06] MEDS: HYDROCORTISONE ACETATE 25MG SUPP PR SCH ×2 (08:46→21:59)
[2019-04-06] MEDS: FERROUS SULFATE 325MG TABLET PO SCH ×3 (08:46→16:30)
[2019-04-06] MEDS: LOSARTAN POTASSIUM 25 MG TABLET PO SCH (08:46)
[2019-04-06 15:15] LABS: CHLORIDE 112 mEq/L (98-107)
[2019-04-06 15:26] LABS: INR 2.9; PROTHROMBIN TIME 28.5 sec (9.6-11.0)
[2019-04-06 15:41] LABS: BASOPHILS % 0.8 % (0.0-2.0); EOSINOPHILS % 3.7 % (0.0-5.0); HEMATOCRIT. 31.1 % (36.0-48.0); HEMOGLOBIN. 10.1 g/dL (12.0-16.0); LYMPHOCYTES % 12.9 % (20.0-50.0); MEAN CORPUSCULAR HEMOGLOBIN 28.1 pg (28.0-32.0); MEAN CORPUSCULAR VOLUME 86.7 fL (81.0-99.0); MEAN PLATELET VOLUME 9.2 fl (7.4-10.4); NEUTROPHILS % 74.6 % (40.0-76.0); PLATELET 199 x1000/uL (130-400); RED BLOOD CELL COUNT 3.59 mill/uL (4.2-5.4); RED CELL DISTRIBUTION WIDTH 17.4 % (11.6-14.6)
[2019-04-06] MEDS ORDERED: WARFARIN SODIUM 3MG TABLET PO NR (18:00)
[2019-04-06] MEDS ORDERED: WARFARIN SODIUM 2MG TABLET PO NR (18:00)
[2019-04-06] MEDS ORDERED: WARFARIN SODIUM 4MG TABLET PO NR (18:00)
[2019-04-06 20:00] VITALS: BP 136/55
[2019-04-06] MEDS: FAMOTIDINE 40MG TABLET PO SCH (21:59)
[2019-04-06] MEDS: ATORVASTATIN CALCIUM 40MG TABLET PO SCH (21:59)
[2019-04-07] MEDS: OMEPRAZOLE 20MG CAPSULE EXTENDED RELEASE PO SCH (06:33)
[2019-04-07] MEDS: GABAPENTIN 100MG CAPSULE PO SCH ×2 (06:33→13:06)
[2019-04-07 07:52] LABS: INR 2.8; PROTHROMBIN TIME 27.4 sec (9.6-11.0)
[2019-04-07 07:55] LABS: CHLORIDE 112 mEq/L (98-107)
[2019-04-07 08:09] VITALS: BP 161/67
[2019-04-07] MEDS: DOCUSATE SODIUM 100MG CAPSULE PO SCH (08:55)
[2019-04-07] MEDS: ZINC SULFATE 220 MG ( 50 ) CAPSULE PO SCH (08:55)
[2019-04-07] MEDS: FERROUS SULFATE 325MG TABLET PO SCH ×2 (08:55→12:31)
[2019-04-07] MEDS: HYDROCORTISONE ACETATE 25MG SUPP PR SCH (08:55)
[2019-04-07] MEDS: LOSARTAN POTASSIUM 25 MG TABLET PO SCH (08:55)
[2019-04-07] MEDS: ATENOLOL 25MG TABLET PO SCH (08:55)
[2019-04-07] MEDS: ASCORBIC ACID 500 MG TABLET PO SCH (08:55)
[2019-04-07] MEDS: LIDOCAINE 5% PATCH TOP SCH (08:56)
[2019-04-07] MEDS: PANTOT AC/MIN OIL/PET HY-PHL OINT (AQUAPHOR) TOP SCH (08:57)
[2019-04-07 10:49] VITALS: BP 159/66
[2019-04-07 12:39] LABS: EOSINOPHILS % 5.2 % (0.0-5.0); HEMATOCRIT. 28.9 % (36.0-48.0); HEMOGLOBIN. 9.5 g/dL (12.0-16.0); LYMPHOCYTES % 18.2 % (20.0-50.0); MEAN CORPUSCULAR HEMOGLOBIN 28.2 pg (28.0-32.0); MEAN CORPUSCULAR VOLUME 85.7 fL (81.0-99.0); MEAN PLATELET VOLUME 9.5 fl (7.4-10.4); MONOCYTES % 9.5 % (2.0-8.0); NEUTROPHILS % 66.1 % (40.0-76.0); PLATELET 177 x1000/uL (130-400); RED BLOOD CELL COUNT 3.37 mill/uL (4.2-5.4)
[2019-04-07] MEDS ORDERED: WARFARIN SODIUM 3MG TABLET PO NR (18:00)
== END 2019-04-07 13:57 | disposition home health service (06) | DRG 551 ==
PROVIDERS: ADMIT Physical Medicine & Rehabilitation Spinal Cord Injury Medicine; ATTEND Internal Medicine
DX: M48.02 Spinal stenosis, cervical region (principal); G82.50 Quadriplegia, unspecified; I48.20 Chronic atrial fibrillation, unspecified; E46 Unspecified protein-calorie malnutrition; K62.5 Hemorrhage of anus and rectum; M48.061 Spinal stenosis, lumbar region without neurogenic claudication; D64.9 Anemia, unspecified; Z68.20 Body mass index [BMI] 20.0-20.9, adult; E78.00 Pure hypercholesterolemia, unspecified; I11.0 Hypertensive heart disease with heart failure; I48.0 Paroxysmal atrial fibrillation; I50.9 Heart failure, unspecified; K64.8 Other hemorrhoids; L89.90 Pressure ulcer of unspecified site, unspecified stage; M17.10 Unilateral primary osteoarthritis, unspecified knee; M47.816 Spondylosis without myelopathy or radiculopathy, lumbar region; R29.6 Repeated falls; S70.01XA Contusion of right hip, initial encounter; Z86.718 Personal history of other venous thrombosis and embolism; Z90.710 Acquired absence of both cervix and uterus; Z95.3 Presence of xenogenic heart valve; Z95.828 Presence of other vascular implants and grafts; Z96.643 Presence of artificial hip joint, bilateral
CPT/HCPCS: 36415; 80048; 80053; 80076; 81003; 82140; 82270; 82306; 82607; 82728; 82746; 83540; 83550; 83735; 84100; 84134; 84443; 85025; 87077; 92610; 93970; 97110; 97116; 97150; 97162; 97167; 97530; 97535; 97542; J2405; J7040; J7050